=== PATIENT | female | born 1955 | race Caucasian/White ===

== ENCOUNTER 2018-12-30 08:54 | Emergency (ER) | payer MEDICARE ==
[~2018-12-30] VITALS: Ht 157.5 cm; Wt 57.6 kg
[2018-12-30 08:59] VITALS: Ht 157.5 cm; Wt 57.6 kg
[2018-12-30 09:47] LABS: UA SPECIFIC GRAVITY <=1.005 (1.005-1.035); microscopic required? YES; urine erythrocyte 3+ (NEGATIVE)
[2018-12-30 10:27] VITALS: BP 126/80
== END 2018-12-30 10:59 | disposition home or self-care (01) ==
LOC: ED 08:54
DX: N39.0 Urinary tract infection, site not specified (principal); Z88.2 Allergy status to sulfonamides; Z88.1 Allergy status to other antibiotic agents; Z88.8 Allergy status to other drugs, medicaments and biological substances